=== PATIENT | female | born 1955 | race Caucasian/White ===

== ENCOUNTER 2024-01-03 18:54 | Emergency (ER) | payer MEDICARE ==
[2024-01-03 19:03] VITALS: BP 175/89; PULSE 91; RESP 18; TEMP 98.7; BMI 30.7
[2024-01-03] MEDS ORDERED: ACETAMINOPHEN 325 MG TABLET (FP) ONE (20:48)
[2024-01-03] MEDS: ACETAMINOPHEN 325 MG TABLET (FP) PO ONE (20:53)
== END 2024-01-03 21:58 | disposition home or self-care (01) ==
LOC: JER 18:54
DX: S62.145A Nondisplaced fracture of body of hamate [unciform] bone, left wrist, initial encounter for closed fracture (principal); S09.90XA Unspecified injury of head, initial encounter; W01.198A Fall on same level from slipping, tripping and stumbling with subsequent striking against other object, initial encounter; Y93.01 Activity, walking, marching and hiking
CPT/HCPCS: 70450-TC; 70486-TC; 71046-TC-FY; 72125-TC; 72170-TC-FY; 73130-TC-LT-FY; 73502-TC-LT-FY; 99284-25

== ENCOUNTER 2024-11-25 10:34 | Observation (INO) | payer OTHER ==
[2024-11-25] MEDS ORDERED: KETOROLAC TROMETHAMINE 15 MG/ML VIAL ONE (12:08)
[2024-11-25] MEDS: KETOROLAC TROMETHAMINE 15 MG/ML VIAL IM ONE (12:13)
[2024-11-25 18:39] LABS: MCHC 31.9 g/dl (32.2-35.5); MEAN CELL VOLUME 82.4 fl (79.4-94.8); MEAN PLT VOLUME 9.4 fl (9.4-12.3); RDW 16.7 % (12.4-16.4)
[2024-11-25 19:26] LABS: CO2 22.0 mmol/L (21-32); GLUCOSE,RANDOM 114.0 mg/dL (74-106)
[2024-11-25 19:30] LABS: CREATININE 1.2 mg/dL (0.55-1.3); SGOT/AST 53.0 U/L (15-37); SGPT/ALT 13.0 U/L (13-61)
[2024-11-25 19:32] LABS: TOT PROT 7.6 g/dl (6.4-8.2)
[2024-11-25 19:33] LABS: ALK PHOS 113.0 U/L (45-117)
[2024-11-26] MEDS ORDERED: KETOROLAC TROMETHAMINE 15 MG/ML VIAL ONE ×2 (00:04→06:39)
[2024-11-26] MEDS: KETOROLAC TROMETHAMINE 15 MG/ML VIAL IVPUSH ONE ×2 (00:55→06:42)
[2024-11-26] MEDS: SODIUM CHLORIDE 1,000 ML IV STA (08:52)
[2024-11-26] MEDS ORDERED: ACETAMINOPHEN INJECTION 100 ML ONE (10:50)
[2024-11-26] MEDS: ACETAMINOPHEN 1000 MG/100 ML BAG IVPB ONE ×2 (10:53→21:02)
[2024-11-26] MEDS: DEXTROSE 5%-NORMAL SALINE 1,000 ML IV SCH (11:02)
[2024-11-26 11:14] LABS: ABSOLUTE IMMATURE GRANULOCYTES 0.06 x10^3/uL (0.0-0.031); BASOPHILS # 0.04 x10^3/uL (0.01-0.08); EOSINOPHIL % 0.3 % (0.7-5.8); EOSINOPHILS # 0.03 x10^3/uL (0.04-0.36); MCHC 31.1 g/dl (32.2-35.5); MEAN CELL VOLUME 84.9 fl (79.4-94.8); MEAN PLT VOLUME 9.2 fl (9.4-12.3); MONOCYTE # 1.03 x10^3/uL (0.24-0.86); MONOCYTE % 11.7 % (4.7-12.5); RDW 16.7 % (12.4-16.4)
[2024-11-26 11:47] LABS: EPI CELLS 8 /uL (0-25.1); HYALINE CASTS 0 /uL (0-3.1); URINE APPEARANCE CLEAR; URINE BACTERIA 452 /uL (0-1359); URINE BILIRUBIN NEGATIVE (NEGATIVE); URINE COLOR YELLOW; URINE GLUCOSE (UA) NEGATIVE (NEGATIVE); URINE KETONE NEGATIVE (NEGATIVE); URINE LEUK ESTERASE TRACE (NEGATIVE); URINE NITRITE NEGATIVE (NEGATIVE); URINE PROTEIN TRACE (NEGATIVE); URINE RBC 484 /uL (0-23.9); URINE UROBILINOGEN 1.0 mg/dL (0.2-1.0); URINE WBC 134 /uL (0-25.8)
[2024-11-26] MEDS ORDERED: amLODIPine BESYLATE 5 MG TABLET (FP) ONE (11:59)
[2024-11-26] MEDS: amLODIPine BESYLATE 5 MG TABLET (FP) PO ONE (12:02)
[2024-11-26 12:04] LABS: CO2 23.0 mmol/L (21-32); GLUCOSE,RANDOM 147.0 mg/dL (74-106)
[2024-11-26 12:06] LABS: SGPT/ALT 13.0 U/L (13-61)
[2024-11-26 12:07] LABS: CREATININE 1.1 mg/dL (0.55-1.3); SGOT/AST 47.0 U/L (15-37)
[2024-11-26 12:08] LABS: TOT PROT 7.2 g/dl (6.4-8.2)
[2024-11-26 12:09] LABS: ALK PHOS 109.0 U/L (45-117)
[2024-11-26 12:15] VITALS: RESP 18
[2024-11-26 13:01] VITALS: BMI 25.2
[2024-11-26] MEDS: INSULIN ASPART SLIDING SCALE (NOVOLOG) 1 VIAL SQ SCH (13:15)
[2024-11-26] MEDS: SODIUM CHLORIDE 1,000 ML IV SCH (13:25)
[2024-11-26] MEDS ORDERED: HEPARIN NA (PORCINE) 5,000 UNITS/ML 1ML VIAL SQ SCH (14:00)
[2024-11-26] MEDS: ACETAMINOPHEN 1000 MG/100 ML BAG IVPB PRN (14:24)
[2024-11-26] MEDS ORDERED: KETOROLAC TROMETHAMINE 15 MG/ML VIAL IVPUSH PRN (18:23)
[2024-11-26 20:53] VITALS: BP 155/77; PULSE 92
[2024-11-26] MEDS ORDERED: morphine CARPU-JECT 2 MG/1 ML DISP.SYRIN IVPUSH PRN (20:58)
[2024-11-26] MEDS: GABAPENTIN 100 MG CAPSULE PO SCH (22:02)
[2024-11-27 01:10] VITALS: TEMP 98.2
[2024-11-27] MEDS ORDERED: amLODIPine BESYLATE 5 MG TABLET (FP) PO SCH (10:00)
[2024-11-27] MEDS ORDERED: LOSARTAN POTASSIUM 50 MG TABLET PO SCH (10:00)
== END 2024-11-27 01:35 | disposition short-term general hospital (02) ==
LOC: JER 10:34 → JERBED 11-26 10:02 → UNDOADMOB 11-26 10:02 → INTOOBSV 11-26 10:02 → JERBED 11-26 10:08 → J8W 11-26 12:36
PROVIDERS: ADMIT Internal Medicine; ATTEND Internal Medicine
DX: M89.8X8 Other specified disorders of bone, other site (principal); E83.52 Hypercalcemia; N63.20 Unspecified lump in the left breast, unspecified quadrant; R91.8 Other nonspecific abnormal finding of lung field; R93.89 Abnormal findings on diagnostic imaging of other specified body structures; R59.0 Localized enlarged lymph nodes; M62.838 Other muscle spasm; I10 Essential (primary) hypertension; E78.5 Hyperlipidemia, unspecified; E11.9 Type 2 diabetes mellitus without complications; R63.4 Abnormal weight loss; R61 Generalized hyperhidrosis; R31.9 Hematuria, unspecified; N13.30 Unspecified hydronephrosis; M51.16 Intervertebral disc disorders with radiculopathy, lumbar region; Z87.891 Personal history of nicotine dependence
CPT/HCPCS: 36415; 71260-TC; 72131-TC; 72192-TC; 74177-TC; 80053; 81003; 82962; 83735; 83970; 84100; 85025; 85027; 87086; 93005; 93010; 96372; 96374; 96375; 96376; 99285-25; G0378; Q9967